=== PATIENT | male | born 1985 | race Caucasian/White ===

== ENCOUNTER 2016-08-06 18:23 | Emergency (ER) | payer SELFPAY ==
[~2016-08-06] VITALS: Ht 182.9 cm; Wt 88.6 kg
[2016-08-06 18:30] VITALS: BP 136/88
== END 2016-08-06 20:36 | disposition home or self-care (01) ==
LOC: ED 20:00
DX: S20.211A Contusion of right front wall of thorax, initial encounter (principal); J45.909 Unspecified asthma, uncomplicated; F19.10 Other psychoactive substance abuse, uncomplicated; Y04.0XXA Assault by unarmed brawl or fight, initial encounter; Y93.89 Activity, other specified; Y92.410 Unspecified street and highway as the place of occurrence of the external cause; Y99.8 Other external cause status